=== PATIENT | male | born 1945 | race Caucasian/White ===

== ENCOUNTER 2017-09-24 19:52 | Observation (INO) | payer MEDICARE ==
[2017-09-24] MEDS ORDERED: NS 0.9% 1000 ML* 1,000 ML IV ONE (20:25)
[2017-09-24] MEDS ORDERED: Morphine INJ* 4 MG/ML 1 ML CARPUJECT IV ONE (20:25)
[2017-09-24] MEDS ORDERED: Ondansetron INJ* 2 MG/ML VIAL IV ONE (20:25)
[2017-09-24 20:50] LABS: Hematocrit 50 % (42-52); Hemoglobin 17.1 g/dl (14.0-18.0); Mean Corpuscular HGB Conc 35 g/dl (31-36); Mean Corpuscular Hemoglobin 32 pg (27-31); Mean Corpuscular Volume 93 fL (80-94); Mean Platelet Volume 7 um3 (7.4-10.4); Red Blood Count 5.32 10^6/ul (4.0-5.4); Red Cell Distribution Width 13 % (10.5-15); White Blood Count 14.5 10^3/ul (3.5-10.8)
[2017-09-24 21:04] LABS: BUN/Creatinine Ratio 25.2 (8-20); Calcium 10.2 mg/dL (8.6-10.3); EGFR African American 74.6 (>60); Globulin 3.2 g/dL (2-4); Potassium 4.3 mmol/L (3.5-5.0); Total Bilirubin 0.8 mg/dL (0.2-1.0); Total Protein 8.2 g/dL (6.4-8.9)
--- NOTE | 2017-09-24 21:43 | ED ---
Rocio Saucedo Abhishek, scribed for Jonah Hong on 09/24/17 at 2108 . Abdominal Pain/Male - HPI Summary HPI Summary: This patient is a 71 year old M presenting to [facility] accompanied by with a chief complaint of abd pain since today. The patient rates the pain 8/10 in severity. Symptoms aggravated by nothing. Symptoms alleviated by nothing. Patient reports nausea, vomiting, flatulence, and diarrhea. Patient denies CP. - History of Current Complaint Chief Complaint: EDAbdPain Stated Complaint: ABD PAIN Time Seen by Provider: 09/24/17 20:12 Hx Obtained From: Patient Onset/Duration: Sudden Onset - today Timing: Constant Severity Initially: Severe Severity Currently: Severe Pain Intensity: 8 Pain Scale Used: 0-10 Numeric Location: Other - Both lower quadrants Aggravating Factor(s): Nothing Alleviating Factor(s): Nothing Associated Signs And Symptoms: Positive: Nausea, Vomiting, Diarrhea, Other - flatulence. Negative: Chest Pain - Allergies/Home Medications Allergies/Adverse Reactions: Allergies Allergy/AdvReac Type Severity Reaction Status Date / Time tape Allergy Hives Uncoded 09/24/17 19:57 PMH/Surg Hx/FS Hx/Imm Hx Cardiovascular History: Denies: Hx Hypertension Respiratory History: Denies: Other Respiratory Problems/Disorders GI History: Reports: Other GI Disorders - Pancreatitis Sensory History: Denies: Hx Deafness Opthamlomology History: Denies: Hx Legally Blind Infectious Disease History: No Infectious Disease History: Denies: Traveled Outside the [place] in Last 30 Days - Family History Known Family History: Negative: Cardiac Disease, Diabetes - Social History Alcohol Use: Occasionally Substance Use Type: Reports: None Smoking Status (MU): Former Smoker Review of Systems Constitutional: Negative Eyes: Negative ENT: Negative Negative: Chest Pain Respiratory: Negative Positive: Abdominal Pain, Vomiting, Diarrhea, Nausea, Other - flatulence Genitourinary: Negative Musculoskeletal: Negative Skin: Negative Neurological: Negative Psychological: Normal All Other Systems Reviewed And Are Negative: Yes Physical Exam - Summary Physical Exam Summary: Appearance: Well appearing, no pain distress Skin: Scars on the abd Head/face: normal Eyes: EOMI, LESLIE ENT: normal Neck: supple, non-tender Respiratory: CTA, breath sounds present Cardiovascular: RRR, pulses symmetrical Abdomen: Tenderness in the right and left lower quadrants Bowel: present Musculoskeletal: normal, strength/ROM intact Neuro: normal, sensory motor intact, A&Ox3 Triage Information Reviewed: Yes Vital Signs On Initial Exam: Initial Vitals Temp Pulse Resp BP Pulse Ox 97.3 F 86 22 157/80 99 09/24/17 19:54 09/24/17 19:54 09/24/17 19:54 09/24/17 19:54 09/24/17 19:54 Vital Signs Reviewed: Yes - [place] Coma Scale Coma Scale Total: 15 Diagnostics - Vital Signs Vital Signs Temp Pulse Resp BP Pulse Ox 09/24/17 20:43 18 09/24/17 19:54 97.3 F 86 22 157/80 99 - Laboratory Lab Results: Lab Results 09/24/17 09/24/17 Range/Units 20:35 20:35 WBC 14.5 H (3.5-10.8) 10^3/ul RBC 5.32 (4.0-5.4) 10^6/ul Hgb 17.1 (14.0-18.0) g/dl Hct 50 (42-52) % MCV 93 (80-94) fL MCH 32 H (27-31) pg MCHC 35 (31-36) g/dl RDW 13 (10.5-15) % Plt Count 181 (150-450) 10^3/ul MPV 7 L (7.4-10.4) um3 Neut % (Auto) 87.1 H (38-83) % Lymph % (Auto) 7.0 L (25-47) % [place] % (Auto) 4.8 (1-9) % Eos % (Auto) 0.6 (0-6) % Baso % (Auto) 0.5 (0-2) % Absolute Neuts (auto) 12.6 H (1.5-7.7) 10^3/ul Absolute Lymphs (auto) 1.0 (1.0-4.8) 10^3/ul Absolute Monos (auto) 0.7 (0-0.8) 10^3/ul Absolute Eos (auto) 0.1 (0-0.6) 10^3/ul Absolute Basos (auto) 0.1 (0-0.2) 10^3/ul Absolute Nucleated RBC 0 10^3/ul Nucleated RBC % 0 INR (Anticoag Therapy) 0.91 (0.89-1.11) APTT 29.2 (26.0-36.3) seconds Result Diagrams: 09/24/17 20:35 09/24/17 20:35 Lab Statement: Any lab studies that have been ordered have been reviewed, and results considered in the medical decision making process. Abdominal Pain Fem Course/Dx - Course Course Of Treatment: This patient is a 71 year old M presenting to [facility] accompanied by with a chief complaint of abd pain since today. Patient reports nausea, vomiting, flatulence, and diarrhea. Patient denies CP. Patient is signed out to Dr. Briceno, pending disposition, awaiting CT A/P. Dx is abd pain. The patient is agreeable with this plan. The patient is agreeable with this plan. - Diagnoses Differential Diagnosis/HQI/PQRI: Appendicitis, Bowel Obstruction, Diverticulitis , Renal Colic, Urinary Tract Infection Provider Diagnoses: Abdominal pain Discharge - Discharge Plan Condition: Stable Disposition: OTHER Discharge Disposition Comment: Patient is signed out to Dr. Briceno, pending disposition, awaiting CT A/P Referrals: Non Staff,Doctor [Primary Care Provider] - The documentation as recorded by the Rocio mckeon Abhishek accurately reflects the service I personally performed and the decisions made by , Jonah Hong.
[2017-09-24] MEDS ORDERED: Iodixanol* (CONTRAST) 320 MG/ML 100 ML SDV IV ONE (22:01)
[2017-09-25] MEDS ORDERED: Albuterol 2.5 MG/3 ML NEB.SOL* (0.083%) INH PRN (01:16)
[2017-09-25] MEDS ORDERED: Acetaminophen SUPP* 650 MG SUPP PR PRN (01:16)
[2017-09-25] MEDS ORDERED: LORazepam INJ* 2 MG/ML 1 ML VIAL IV PRN (01:16)
[2017-09-25] MEDS ORDERED: Morphine INJ* 2 MG/ML 1 ML SYRINGE (TWO MG - NEW SYRINGE VERSION) IV PRN (01:17)
[2017-09-25] MEDS ORDERED: Ondansetron INJ* 2 MG/ML VIAL IV PRN (01:17)
[2017-09-25] MEDS ORDERED: ZOSYN 3.375 GM x ONE DOSE over 30 miuntes IVPB ×2 (02:00)
[2017-09-25] MEDS: NS 0.9% 1000 ML* 1,000 ML IV SCH ×4 (02:23→15:13)
[2017-09-25 02:29] LABS: Hematocrit 42 % (42-52); Hemoglobin 14.6 g/dl (14.0-18.0); Mean Corpuscular HGB Conc 35 g/dl (31-36); Mean Corpuscular Hemoglobin 32 pg (27-31); Mean Corpuscular Volume 93 fL (80-94); Mean Platelet Volume 7 um3 (7.4-10.4); Red Blood Count 4.54 10^6/ul (4.0-5.4); Red Cell Distribution Width 14 % (10.5-15); White Blood Count 10.6 10^3/ul (3.5-10.8)
[2017-09-25 02:43] LABS: EGFR African American 104.3 (>60); EGFR Non-African American 81.1 (>60)
--- NOTE | 2017-09-25 02:56 | HP ---
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 He had one episode of "twisted bowels" ~10years ago. Yesterday AM when bending over to put on his shoes he developed a cramping abdominal pain which waxed and waned throughout the day. He & his came to [place] to have lunch with their son and then went to [place] where his son had recently bought a home. On the way he experienced severe worsening of his abdominal cramping associated with nausea, chills, and sweats, but no emesis, fever, chest pain, SOB, palpitations, or other issues. The pain became so severe , they consulted their GPS for the nearest hospital and came to [facility]. Evaluation is notable for WBCs of 14k and a CT abdomen revealing a SBO. Morphine has greatly alleviated the pain, whereas moving and palpation made it worse. He had a single small volume bowel movement today and recall passing flatus x3, but not since ~noon. PMedHx severe gallstone pancreatitis as above numerous procedures ~21years ago for multiple/recurrent abdominal abscesses DVT s/p IVC filter HTN HLD Medications Nursing to reconcile Allergies tape Allergy (Uncoded 09/24/17 19:57) Hives PSurgHx open cholecystectomy >10 abdominal surgeries for recurrent abscesses as above SocHx: no tobacco, alcohol, or recreational drugs; lives with his ; retired secondary school teacher librarian; full code status FamHx: Father: in his 80s 2nd "unknown skin problem" w/ CAD; Mother: in her 80s 2nd complications of Alzheimer's; Sister: healthy ROS: as above, otherwise reviewed and all were negative vitals: Vital Signs Temp 36.7 C 09/25/17 01:35 Pulse 62 09/25/17 01:35 Resp 16 09/25/17 01:35 BP 143/60 09/25/17 01:35 Pulse Ox 98 09/25/17 01:35 Intake & Output 09/24/17 09/24/17 09/25/17 11:59 23:59 11:59 Intake Total 1000 Balance 1000 Weight 86.183 kg Intake: IV Fluids 1000 Constitutional: NAD, normally developed, overweight elderly white male HEENM: atraumatic; sclera/conjunctiva: anicteric/clear; hearing: clinically intact; oropharynx: clear, mucosa moist Neck: soft tissue: non-tender; thyroid: normal Pulmonary: clear to auscultation bilaterally, good aeration, no accessory muscle use CV: RR/RR, normal S1S2, no carotid bruit, no jugular venous distention, 2+ B DP/ PT, no edema Abdominal: soft, mildly-distended, non-tender, no rebound/guarding/rigidity, normoactive bowel sounds, no hepatosplenomegaly or masses, no costovertebral angle tenderness Musculoskeletal: general: grossly intact; gait: stable Integumental: multiple healed abdominal incisions w/o erytherma/warmth/ induration/tenderness Psychiatric orientation: AA&O to PPS affect: calm mood: cooperative eye contact: good content: reliable responses: timely insight: good Testing: Lab Results 09/24/17 09/24/17 09/24/17 Range/Units 20:35 20:35 20:35 WBC 14.5 H (3.5-10.8) 10^3/ul RBC 5.32 (4.0-5.4) 10^6/ul Hgb 17.1 (14.0-18.0) g/dl Hct 50 (42-52) % MCV 93 (80-94) fL MCH 32 H (27-31) pg MCHC 35 (31-36) g/dl RDW 13 (10.5-15) % Plt Count 181 (150-450) 10^3/ul MPV 7 L (7.4-10.4) um3 Neut % (Auto) 87.1 H (38-83) % Lymph % (Auto) 7.0 L (25-47) % [place] % (Auto) 4.8 (1-9) % Eos % (Auto) 0.6 (0-6) % Baso % (Auto) 0.5 (0-2) % Absolute Neuts (auto) 12.6 H (1.5-7.7) 10^3/ul Absolute Lymphs (auto) 1.0 (1.0-4.8) 10^3/ul Absolute Monos (auto) 0.7 (0-0.8) 10^3/ul Absolute Eos (auto) 0.1 (0-0.6) 10^3/ul Absolute Basos (auto) 0.1 (0-0.2) 10^3/ul Absolute Nucleated RBC 0 10^3/ul Nucleated RBC % 0 INR (Anticoag Therapy) 0.91 (0.89-1.11) APTT 29.2 (26.0-36.3) seconds Sodium 135 (133-145) mmol/L Potassium 4.3 (3.5-5.0) mmol/L Chloride 99 L (101-111) mmol/L Carbon Dioxide 25 (22-32) mmol/L Anion Gap 11 (2-11) mmol/L BUN 31 H (6-24) mg/dL Creatinine 1.23 H (0.67-1.17) mg/dL Est GFR ( Amer) 74.6 (>60) Est GFR (Non-Af Amer) 58.0 (>60) BUN/Creatinine Ratio 25.2 H (8-20) Glucose 119 H (70-100) mg/dL Lactic Acid (0.5-2.0) mmol/L Calcium 10.2 (8.6-10.3) mg/dL Total Bilirubin 0.80 (0.2-1.0) mg/dL AST 27 (13-39) U/L ALT 41 (7-52) U/L Alkaline Phosphatase 48 (34-104) U/L Troponin I 0.00 (<0.04) ng/mL Total Protein 8.2 (6.4-8.9) g/dL Albumin 5.0 (3.2-5.2) g/dL Globulin 3.2 (2-4) g/dL Albumin/Globulin Ratio 1.6 (1-3) Lipase 19 (11.0-82.0) U/L 09/24/17 09/25/17 09/25/17 Range/Units 20:35 02:18 02:18 WBC (3.5-10.8) 10^3/ul RBC (4.0-5.4) 10^6/ul Hgb (14.0-18.0) g/dl Hct (42-52) % MCV (80-94) fL MCH (27-31) pg MCHC (31-36) g/dl RDW (10.5-15) % Plt Count (150-450) 10^3/ul MPV (7.4-10.4) um3 Neut % (Auto) (38-83) % Lymph % (Auto) (25-47) % [place] % (Auto) (1-9) % Eos % (Auto) (0-6) % Baso % (Auto) (0-2) % Absolute Neuts (auto) (1.5-7.7) 10^3/ul Absolute Lymphs (auto) (1.0-4.8) 10^3/ul Absolute Monos (auto) (0-0.8) 10^3/ul Absolute Eos (auto) (0-0.6) 10^3/ul Absolute Basos (auto) (0-0.2) 10^3/ul Absolute Nucleated RBC 10^3/ul Nucleated RBC % INR (Anticoag Therapy) 0.92 (0.89-1.11) APTT 26.5 (26.0-36.3) seconds Sodium (133-145) mmol/L Potassium (3.5-5.0) mmol/L Chloride (101-111) mmol/L Carbon Dioxide (22-32) mmol/L Anion Gap (2-11) mmol/L BUN (6-24) mg/dL Creatinine (0.67-1.17) mg/dL Est GFR ( Amer) (>60) Est GFR (Non-Af Amer) (>60) BUN/Creatinine Ratio (8-20) Glucose (70-100) mg/dL Lactic Acid 2.1 H* 1.5 (0.5-2.0) mmol/L Calcium (8.6-10.3) mg/dL Total Bilirubin (0.2-1.0) mg/dL AST (13-39) U/L ALT (7-52) U/L Alkaline Phosphatase (34-104) U/L Troponin I (<0.04) ng/mL Total Protein (6.4-8.9) g/dL Albumin (3.2-5.2) g/dL Globulin (2-4) g/dL Albumin/Globulin Ratio (1-3) Lipase (11.0-82.0) U/L 11/13/17 11/13/17 Range/Units 02:18 02:18 WBC 10.6 (3.5-10.8) 10^3/ul RBC 4.54 (4.0-5.4) 10^6/ul Hgb 14.6 (14.0-18.0) g/dl Hct 42 (42-52) % MCV 93 (80-94) fL MCH 32 H (27-31) pg MCHC 35 (31-36) g/dl RDW 14 (10.5-15) % Plt Count 154 (150-450) 10^3/ul MPV 7 L (7.4-10.4) um3 Neut % (Auto) 77.7 (38-83) % Lymph % (Auto) 12.9 L (25-47) % [place] % (Auto) 7.6 (1-9) % Eos % (Auto) 1.2 (0-6) % Baso % (Auto) 0.6 (0-2) % Absolute Neuts (auto) 8.2 H (1.5-7.7) 10^3/ul Absolute Lymphs (auto) 1.4 (1.0-4.8) 10^3/ul Absolute Monos (auto) 0.8 (0-0.8) 10^3/ul Absolute Eos (auto) 0.1 (0-0.6) 10^3/ul Absolute Basos (auto) 0.1 (0-0.2) 10^3/ul Absolute Nucleated RBC 0 10^3/ul Nucleated RBC % 0 INR (Anticoag Therapy) (0.89-1.11) APTT (26.0-36.3) seconds Sodium (133-145) mmol/L Potassium (3.5-5.0) mmol/L Chloride (101-111) mmol/L Carbon Dioxide (22-32) mmol/L Anion Gap (2-11) mmol/L BUN 29 H (6-24) mg/dL Creatinine 0.92 (0.67-1.17) mg/dL Est GFR ( Amer) 104.3 (>60) Est GFR (Non-Af Amer) 81.1 (>60) BUN/Creatinine Ratio (8-20) Glucose (70-100) mg/dL Lactic Acid (0.5-2.0) mmol/L Calcium (8.6-10.3) mg/dL Total Bilirubin (0.2-1.0) mg/dL AST (13-39) U/L ALT (7-52) U/L Alkaline Phosphatase (34-104) U/L Troponin I (<0.04) ng/mL Total Protein (6.4-8.9) g/dL Albumin (3.2-5.2) g/dL Globulin (2-4) g/dL Albumin/Globulin Ratio (1-3) Lipase (11.0-82.0) U/L CT abdomen/pelvis, personally reviewed: IMPRESSION: Small bowel obstruction associated with lateral abdominal wall hernia Impression: 71M HX severe gallstone pancreatitis precipitating >10 surgeries to recover presents with SBO DIAGNOSIS & PLAN Primary SBO : NG to low intermittent suction for decompression : NPO : pain control : consider surgical consult in AM pending overnight course : supportive care Secondary HX DVT : s/p IVC filter : SCDs & heparin SQ HTN : review medications once reconciled HLD : review medications once reconciled Admission Rational: inpatient for SBO not anticipated to adequately resolve w/i 48h to allow for discharge DVTp: heparin SQ & SCDs Code Status: full HCP:
--- NOTE | 2017-09-25 03:58 | ED ---
Kathleen Saucedo Edward, scribed for Marta Briceno MD on 09/24/17 at 2322 . Progress - Progress Note Progress Note: Pt signed out by Dr. Hong pending ABD/PEL CT. - Results/Orders Results/Orders: ABD/PEL CT - Small bowel obstruction associated with lateral abdominal wall hernia. Re-Evaluation - Re-Evaluation 1 Re-Evaluation Time: 23:53 Comment: Discuss CT results Course/Dx - Course Course Of Treatment: This patient is a 71 year old M [facility] accompanied by with a chief complaint of abd pain since today. Patient reports nausea, vomiting, flatulence, and diarrhea. Patient denies CP. Patient is signed out to Dr. Briceno, pending disposition, awaiting CT A/P. Dx is abd pain. The patient is agreeable with this plan. ABD/PEL CT SHOWS small bowel obstruction associated with lateral abdominal wall hernia. Pt will be admitted to [facility] by Dr. Farmer. - Diagnoses Provider Diagnoses: Abdominal pain, SBO (small bowel obstruction) - Provider Notifications Discussed Care Of Patient With: Héctor Farmer Time Discussed With Above Provider: 00:20 Instructed by Provider To: Admit As Inpatient The documentation as recorded by the Kathleen mckeon Edward accurately reflects the service I personally performed and the decisions made by Kaity hernandez Norma, MD.
[2017-09-25 04:17] LABS: Urine Bilirubin Negative (Negative); Urine Glucose Negative (Negative); Urine Nitrite Negative (Negative)
[2017-09-25 05:41] LABS: Hematocrit 42 % (42-52); Hemoglobin 14.1 g/dl (14.0-18.0); Mean Corpuscular HGB Conc 34 g/dl (31-36); Mean Corpuscular Hemoglobin 32 pg (27-31); Mean Corpuscular Volume 93 fL (80-94); Mean Platelet Volume 7 um3 (7.4-10.4); Red Blood Count 4.44 10^6/ul (4.0-5.4); Red Cell Distribution Width 14 % (10.5-15); White Blood Count 9.1 10^3/ul (3.5-10.8)
[2017-09-25 05:55] LABS: BUN/Creatinine Ratio 27.8 (8-20); Calcium 7.8 mg/dL (8.6-10.3); EGFR Non-African American 83.2 (>60); Potassium 4.3 mmol/L (3.5-5.0)
--- NOTE | 2017-09-25 07:54 | RAD ---
INDICATION: Left lower quadrant pain COMPARISON: None TECHNIQUE: Axial source images were obtained from the hemidiaphragms to the symphysis pubis following administration of oral and intravenous contrast. 97 mL Visipaque 320 was utilized. Coronal and sagittal reconstructed images were acquired. Lung bases: There are mild emphysematous changes in lung bases. Liver: The liver is normal in size. There are no masses. There is no ductal dilatation. Gallbladder: Cholecystectomy. Spleen: The spleen is normal in size. There are no masses. Pancreas: There is mild pancreatic atrophy. Adrenal glands: There is no evidence of adrenal mass. Kidneys: The kidneys are normal in size and position. There are prompt nephrograms and there is prompt excretion bilaterally. There are no renal parenchymal masses. There is no evidence of nephrolithiasis. Adenopathy: There is no evidence of adenopathy by size criteria. Fluid collections: There are no free or localized fluid collections. Vessels:There are no significant atherosclerotic changes involving the aorta. There is no focal aneurysm. The iliac vessels are normal in caliber. The IVC appears normal. GI tract: There are no acute CT bowel findings. There is no obstruction. The stomach and small bowel appear normal. The lower GI tract is normal. The cecum, ileocecal valve, and terminal ileum appear normal. The appendix is visualized and appear normal. Pelvic organs: The prostate is mildly enlarged with a nodular configuration impressing upon the floor the bladder Bladder: Extrinsic mass effect from prostate, otherwise negative. Abdominal and pelvic soft tissues: There is a moderate-sized right lateral abdominal wall hernia containing multiple loops of small bowel. This appears to be producing a partial obstruction. The dilated loops of small bowel measuring up to 3.8 cm in transverse dimension proximal to this. There are no findings of pneumatosis. There is no free intraperitoneal air. The remainder the small bowel is normal in caliber but is also fluid-filled. The colon is fluid-filled. There are scattered diverticula of the sigmoid colon. There is no CT evidence of acute diverticulitis. Osseous structures: There are no acute osseous findings. Other: None IMPRESSION: RIGHT LATERAL WALL HERNIA PRODUCING PARTIAL SMALL BOWEL OBSTRUCTION.
--- NOTE | 2017-09-25 08:37 | PN ---
Subjective Date of Service: 09/25/17 Interval History: Patient seen and examined at bedside. Patient denies pain at this time. Denies nausea as well. Reports flatus. NGT output 250 since insertion. Family History: Unchanged from Admission Social History: Unchanged from Admission Past Medical History: Unchanged from Admission Objective Active Medications: Acetaminophen (Tylenol Supp*) 650 mg AR Q6H PRN Albuterol (Ventolin 2.5 Mg/3 Ml Neb.Jen*) 2.5 mg INH Q2H PRN Famotidine (Pepcid Iv*) 20 mg IV BID VERNON Heparin Sodium (Porcine) (Heparin Vial(*)) 5,000 units SUBCUT Q8HR VERNON Sodium Chloride (Ns 0.9% 1000 Ml*) 1,000 mls @ 0 mls/hr IV WIDE OPEN VERNON Sodium Chloride (Ns 0.9% 1000 Ml*) 1,000 mls @ 100 mls/hr IV PER RATE VERNON Piperacillin Sod/Tazobactam (Sod 3.375 gm/ Sodium Chloride) 100 mls @ 25 mls/ hr IVPB Q8H VERNON Lorazepam (Ativan Inj*) 0.5 mg IV BEDTIME PRN Morphine Sulfate (Morphine Inj (Syringe)*) 2 mg IV Q4H PRN Ondansetron HCl (Zofran Inj*) 4 mg IV Q6H PRN Vital Signs Temp Pulse Resp BP Pulse Ox 97.6 F 62 18 138/59 96 09/25/17 03:51 09/25/17 03:51 09/25/17 08:00 09/25/17 03:51 09/25/17 04:31 Oxygen Devices in Use Now: None Appearance: sitting up in bed, NAD Eyes: No Scleral Icterus, PERRLA Ears/Nose/Mouth/Throat: NL Teeth, Lips, Gums Neck: NL Appearance and Movements; NL JVP Respiratory: Symmetrical Chest Expansion and Respiratory Effort, Clear to Auscultation Cardiovascular: NL Sounds; No Murmurs; No JVD, RRR Abdominal: - - slight tenderness to deep palpation on R and L lateral rodriguez; +BS , non-distended. Extremities: No Edema Neurological: Alert and Oriented x 3 Lines/Tubes/Other Access: Clean, Dry and Intact Naso-enteral Tube Nutrition: Taking PO's Result Diagrams: 09/25/17 05:20 09/25/17 05:20 Additional Lab and Data: . Assess/Plan/Problems-Billing Patient is a 71 y/o M w/ hx of multiple abdominal surgeries secondary to gallstone pancreatitis who presented to the ER w/ the c/o of sudden onset of abdominal pain with nausea found to have a small bowel obstruction. - Patient Problems (1) Small bowel obstruction Comment: Pain improved. Will clamp NGT for 2 hrs and replace to suction. If < 250 mL and no worsening pain or nausea, will remove and advance to clears. Repeat KUB for AM. Surgery to see. Continue IVF while NPO. Leukocytosis improved. (2) HTN (hypertension) Comment: Hold Lisinopril-HCTZ for now. BP controlled. (3) DVT prophylaxis Comment: SQ Heparin. (4) Full code status Status and Disposition: Inpatient for SBO. Plan to discharge home when stable.
[2017-09-25] MEDS: Famotidine IV* 10 MG/ML 2 ML (20 mg) IV SCH ×2 (09:10→20:57)
--- NOTE | 2017-09-25 09:59 | CONSULT ---
Consult Consult: Surgical consult dictated. Impression/Plan: Partial SBO, recurrent, last episdoe 10 years ago. 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 Known right sided ventral hernia, reducible, and non-tender. Exam with mildly dilated abdomen, positive bowel sounds in all quadrants, no tenderness. NG output approx. 150 cc since admission Plan to clamp NG tube, resume suction after 2 hrs, then d/c NG if output<200 cc. No signs of acute abdomen No surgical indications at this time. Will follow during this admission
--- NOTE | 2017-09-25 19:51 | CONS ---
CC: Héctor Farmer MD * CONSULTATION REPORT: DATE OF CONSULT: 09/25/17 PATIENT OF: Héctor Farmer MD REFERRED TO: Reji Avalos MD REASON FOR CONSULT: Abdominal pain and small bowel obstruction. HISTORY OF PRESENT ILLNESS: Mr. Hurt is a pleasant 71-year-old gentleman, who presented to the emergency room with complaints of acute onset of severe abdominal pain. The patient notes he bent over to get something closer to his shoes the day before, when he experienced an acute onset of crampy abdominal pain, which waxed and waned throughout the day. His pain has gotten worse on the next day while he was driving to [place] to have lunch with his and son. He resides in [place] and he went to [place] to visit his son and on his way back to the area, he noticed increasing pain in his abdomen for which he went directly to the emergency room at [facility] for further evaluation. He described it as severe sharp pain localized in the mid and lower abdomen, associated with nausea, chills, and sweats, but denies any vomiting, fever, chest pain. He had similar complaints about 10 years ago, which was described as "twisted bowels" for which he was hospitalized and had an NG decompression; however, no surgical intervention was needed back then. 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 The patient described really complicated postoperative course with multiple intraabdominal abscesses drained and also noted that the patient was in induced coma for a period of 5 months, until he eventually recovered from the episode. Fortunately for him, he only had 1 episode of small bowel obstruction 10 years ago that appeared to be resolved with no surgical intervention and had no abdominal pain until yesterday. During his ED visit yesterday, the patient was noted to have leukocytosis with white count of 14,000. He had a CT scan of the abdomen and pelvis that revealed partial small bowel obstruction as well as a large right-sided ventral hernia containing bowel. Given his ongoing symptoms and the findings of the CT scan, the patient was admitted under the medical services for small bowel obstruction. He did relatively better since admission and this morning, he is pain free, passing a little bit of flatus, denies any nausea or vomiting. He had an NG since his admission that produced only 150 cc of total output. We were asked to see the patient for further evaluation of small bowel obstruction. PAST MEDICAL HISTORY: As mentioned above, significant for a gallstone pancreatitis for which the patient had a cholecystectomy that was complicated with necrotizing pancreatitis as well as multiple intraabdominal surgeries and abscesses during a course of 5-month hospitalization. 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 He also has history of hypertension and hyperlipidemia. PAST SURGICAL HISTORY: As mentioned above, significant for cholecystectomy 21 years ago that was complicated with multiple biliary obstructions, gallstones pancreatitis, and necrotizing pancreatitis for which he had a total of 10 intraabdominal surgeries in a period of 5-1/2 months with complicated postoperative course and intraabdominal abscess formation. He also has a Thomas IVC filter placed. CURRENT MEDICATIONS: His medications at home include: 1. Albuterol nebulizer 2.5/3 mL inhaler q.2 hours p.r.n. for shortness of breath. 2. Lorazepam 0.5 mg q.8 hours p.r.n. for anxiety. ALLERGIES: He is allergic to TAPE, which caused localized reaction. FAMILY HISTORY: Noncontributory. SOCIAL HISTORY: The patient resides in [place]. He is retired. He denies smoking or alcohol intake. REVIEW OF SYSTEMS: See HPI. Otherwise negative. He denies any headache, dizziness, blurred vision, or double vision. No sore throat, shortness of breath, cough, or wheezing. He denies chest pain, palpitation, or ankle swelling. No back pain, flank pain, dysuria, hematuria, or urinary frequency. No fever, chills, night sweats, or recent weight loss. PHYSICAL EXAM: General: He is a pleasant, healthy appearing, upper middle- aged gentleman, in no acute distress or discomfort at the time of consultation. Vitals: His vitals this morning revealed a temperature of 99.4, pulse of 62, blood pressure of 117/55, respirations of 18, and O2 sat of 97% on room air. HEENT: Sclerae anicteric. PERRLA. EOMs intact. Oropharynx is pink and moist with no exudate. Neck: Supple, trachea midline. No cervical adenopathy, thyromegaly, or JVD. Lungs: Clear to auscultation bilaterally. Heart: Regular rate and rhythm. Normal S1 and S2 without rubs, murmurs, or gallops. Back with normal curvature, no CVA tenderness. Abdomen: Soft and nontender. There is mild distention noted, but no focal tenderness throughout the abdomen. There are multiple old scars from prior laparotomy, one of them extends transversely from right to left flank. There is moderate right-sided ventral hernia noted that was easily reducible without tenderness noted. No organosplenomegaly. There is no guarding, rigidity, or rebound tenderness. Extremities: Without cyanosis, clubbing, or edema. Neurologic: Grossly intact. Rectal exam deferred at this time. DIAGNOSTIC STUDIES/LAB DATA: The patient had CBC upon admission that revealed leukocytosis with white count of 14,500 that had dropped to normal limits with value of 9000 this morning. Remainder of CBC was within normal limits. Chemistry revealed normal limits with lactic acid elevated yesterday with value of 2.1 that was repeated earlier this morning with a normal limit with value of 1.5. Accessory diagnostic data: The patient had a CT scan of the abdomen and pelvis last night during his ED visit that revealed a right lateral wall hernia with partial small bowel obstruction. IMPRESSION: A 71-year-old gentleman with multiple complicated past surgical history, who presented with acute onset of abdominal pain and distention with CT scan finding consistent with partial small bowel obstruction. PLAN: The patient was admitted under surgical services. He was kept NPO and NG tube was placed for decompression. He appears to be clinically improving at this time. His NG output has been totalled 150 cc since his admission. His exam was essentially unremarkable and he has chronic right-sided ventral hernia that has not been bothering him since onset. At this point, I do not see any surgical indication. I recommended clamping the NG tube for a period of 2 hours and to resume suction after that. If that output by then is less than 200 , we will discontinue the NG tube and we will start him on a trial of sips of clear liquids as well as ambulating down the mcdowell. I will also get abdominal x- rays tomorrow for a followup. The case will be discussed with Dr. Avalos regarding any further recommendation. Thank you for this consultation. NIRMAL HAMLIN [id number]/[facility] #: [id number] [facility] HEART CENTERAmilcar
[2017-09-26] MEDS: NS 0.9% 1000 ML* 1,000 ML IV SCH (01:17)
[2017-09-26] MEDS: Heparin VIAL(*) 5000 UNITS/ML VIAL (FIVE THOUSAND) SUBCUT SCH ×2 (05:32→13:38)
[2017-09-26 05:39] LABS: Hematocrit 38 % (42-52); Hemoglobin 12.8 g/dl (14.0-18.0); Mean Corpuscular HGB Conc 34 g/dl (31-36); Mean Corpuscular Hemoglobin 32 pg (27-31); Mean Corpuscular Volume 94 fL (80-94); Mean Platelet Volume 7 um3 (7.4-10.4); Red Blood Count 4.02 10^6/ul (4.0-5.4); Red Cell Distribution Width 13 % (10.5-15); White Blood Count 5.5 10^3/ul (3.5-10.8)
[2017-09-26 05:55] LABS: BUN/Creatinine Ratio 17.4 (8-20); Calcium 7.7 mg/dL (8.6-10.3); EGFR African American 104.3 (>60); EGFR Non-African American 81.1 (>60); Potassium 3.5 mmol/L (3.5-5.0)
[2017-09-26] MEDS ORDERED: NS 0.9% 1000 ML* 1,000 ML IV SCH (07:30)
[2017-09-26] MEDS: Famotidine IV* 10 MG/ML 2 ML (20 mg) IV SCH (07:59)
--- NOTE | 2017-09-26 08:06 | RAD ---
INDICATION: Follow-up small bowel obstruction COMPARISON: CT abdomen pelvis dated September 24, 2017 TECHNIQUE: Supine and upright views of the abdomen were obtained. FINDINGS: There are dilated loops of small bowel measuring up to 4.4 cm in diameter at the right of midline upper abdomen that correspond to the dilated loop seen on the previous CT examination. Gas and stool is seen overlying the distal colon and rectum including oral contrast from the previous day's CT. Incidentally noted is a Thomas filter. IMPRESSION: Dilated loops of small bowel measuring up to 4.4 cm in diameter, and increased when compared to the previous CT examination.
--- NOTE | 2017-09-26 10:02 | PN ---
Subjective Date of Service: 09/26/17 Interval History: Patient seen and examined at bedside. Patient stated he had formed BM yesterday and liquid BM today. He denies pain at this time. Family History: Unchanged from Admission Social History: Unchanged from Admission Past Medical History: Unchanged from Admission Objective Active Medications: Acetaminophen (Tylenol Supp*) 650 mg NE Q6H PRN Famotidine (Pepcid Iv*) 20 mg IV BID VERNON Heparin Sodium (Porcine) (Heparin Vial(*)) 5,000 units SUBCUT Q8HR VERNON Piperacillin Sod/Tazobactam (Sod 3.375 gm/ Sodium Chloride) 100 mls @ 25 mls/ hr IVPB Q8H VERNON Sodium Chloride (Ns 0.9% 1000 Ml*) 1,000 mls @ 50 mls/hr IV PER RATE VERNON Lorazepam (Ativan Inj*) 0.5 mg IV BEDTIME PRN Morphine Sulfate (Morphine Inj (Syringe)*) 2 mg IV Q4H PRN Ondansetron HCl (Zofran Inj*) 4 mg IV Q6H PRN Vital Signs Temp Pulse Resp BP Pulse Ox 98.2 F 64 17 148/65 98 09/26/17 08:11 09/26/17 08:11 09/26/17 08:11 09/26/17 08:11 09/26/17 08:11 Oxygen Devices in Use Now: None Appearance: sitting up in bed, NAD Eyes: No Scleral Icterus, PERRLA Ears/Nose/Mouth/Throat: NL Teeth, Lips, Gums Neck: NL Appearance and Movements; NL JVP Respiratory: Symmetrical Chest Expansion and Respiratory Effort, Clear to Auscultation Cardiovascular: NL Sounds; No Murmurs; No JVD, RRR Abdominal: NL Sounds; No Tenderness; No Distention Extremities: No Edema Skin: No Rash or Ulcers Neurological: Alert and Oriented x 3 Lines/Tubes/Other Access: Clean, Dry and Intact Peripheral IV Result Diagrams: 09/26/17 05:17 09/26/17 05:17 Additional Lab and Data: . Assess/Plan/Problems-Billing Patient is a 71 y/o M w/ hx of multiple abdominal surgeries secondary to gallstone pancreatitis who presented to the ER w/ the c/o of sudden onset of abdominal pain with nausea found to have a small bowel obstruction. - Patient Problems (1) Small bowel obstruction Comment: KUB shows persistent loops of dilated bowels but pt moving bowels and pain resolved. Will advance to full liquid diet. Appreciate surgical consult. (2) HTN (hypertension) Comment: Hold Lisinopril-HCTZ for now. BP controlled. (3) DVT prophylaxis Comment: SQ Heparin. (4) Full code status Status and Disposition: Inpatient for SBO. Possible discharge home later today.
[2017-09-26 11:45] VITALS: BP 140/52
--- NOTE | 2017-09-26 14:43 | PN ---
Progress Note - Progress Note Date of Service: 09/26/17 SOAP: Subjective: Patient seen and examined at bedside. Reports feeling much better. Has no pain, denies nausea or vomiting. Had multiple BMs since last night, pssing flatus. Tolerating full liquid, the soft diet. Would like to go home later today. Objective: Awake and alert, sitting on bed, eating lunch, comfortable and in NAD. VSS, afebrile Abdomen soft, NT, ND. Bowel sounds normoactive. Labs noted, leukocystosis resolved. AXR with persistent dilated small bowel loops despite clinical improvement. Assessment: A 71 y/o male with resolving partial SBO Plan: Agree with advancing diet D/C IVF Agree to discharge home today. Patient can follow up with PCP and general surgeon in [facility] in 1-2 weeks. Thank you for involving us in his care.
--- NOTE | 2017-09-27 06:17 | DS ---
CC: NIRMAL Morales * DISCHARGE SUMMARY: DATE OF ADMISSION: 09/25/17 DATE OF DISCHARGE: 09/26/17 PRIMARY CARE PROVIDER: Out of area. CONSULTATIONS WHILE IN THE HOSPITAL: NIRMAL Morales from Surgery. ATTENDING PHYSICIAN: Ellyn Mcclelland MD* (Dictated by Ladonna Mejias NP) PRIMARY DIAGNOSIS: Small bowel obstruction. SECONDARY DIAGNOSES: 1. Hypertension. 2. Hyperlipidemia. 3. History of deep venous thrombosis. STUDIES WHILE IN THE HOSPITAL: 1. CT scan of the abdomen and pelvis: Right lateral wall hernia producing partial small bowel obstruction. 2. Abdomen x-ray: Dilated loops of small bowel measuring up to 4.4 cm in diameter and increased when compared to previous CT examination. MEDICATIONS: At the time of discharge are unchanged from admission, which include: 1. Fish oil 1000 mg oral daily. 2. Lisinopril/hydrochlorothiazide 20/12.5 mg oral daily. 3. Pravastatin 40 mg oral daily. HISTORY OF PRESENT ILLNESS AND HOSPITAL COURSE: Mr. Hurt is a 71-year-old male with a history of severe gallstones pancreatitis resulting in over 10 surgeries secondary to abscess drainage and hospitalization for over 5 months. In addition, he had a history of small bowel obstruction approximately 10 years ago. The patient presented to the emergency room very late in the evening on with a complaint of cramping abdominal pain. The patient was visiting family in [facility]. Upon presentation, the patient had elevated white blood cells count and a CT of the abdomen which revealed a small bowel obstruction. The patient was admitted to the surgical floor. An NG tube was placed and with this the patient's pain improved. Consultation was obtained from Surgery. Please refer to their consultation for details. NG tube was clamped and able to be removed shortly on hospitalization day 1. The patient was started on sips of clears the following day, although repeat abdominal x-rays showed increasing dilatation of small bowel. The patient had two bowel movements and the pain had completely resolved. His diet was advanced to a full liquid and subsequently to a soft diet. He tolerated this diet without any worsening abdominal pain. At this point, he was stable to be discharged home with close followup by his primary care provider. Vitals were as follows: Temperature 98.5, heart rate 62, respiratory rate 16, blood pressure 114/52, oxygen saturation 98%. At this point, he was stable to be discharged home. DISCHARGE PLAN: The patient is discharged on a soft diet. The patient can have activity as tolerated. The patient is instructed to follow up with his primary care provider within the next 7 to 10 days. The patient is instructed to return to the hospital if he experiences any worsening abdominal pain, nausea , vomiting, and lack of bowel movements. I reviewed all these instructions with the patient and his , they are agreeable with his discharge today. This is a summarized report of a complex medical history and hospital stay. For more details, please see the entire medical record. TIME SPENT: Time for this discharge was 50 minutes, and 25 minutes were spent with the patient and discussing the discharge plan and followup instructions. CONDITION ON DISCHARGE: Stable. Reviewed by LADONNA MEJIAS NP 09/27/2017 1142 [id number] #: [id number] [facility]
== END 2017-09-26 15:35 | disposition home or self-care (01) ==
LOC: ED 19:52 → INTOOBSV 09-25 00:16 → SSU 09-25 00:16
PROVIDERS: ADMIT Hospitalist; ATTEND Hospitalist
DX: K56.609 Unspecified intestinal obstruction, unspecified as to partial versus complete obstruction (principal); I10 Essential (primary) hypertension; E78.5 Hyperlipidemia, unspecified; Z86.718 Personal history of other venous thrombosis and embolism; Z79.899 Other long term (current) drug therapy; Z87.891 Personal history of nicotine dependence; R10.9 Unspecified abdominal pain
CPT/HCPCS: 36415; 74020; 74177; 80048; 80053; 81003; 82565; 83605; 83690; 84484; 84520; 85025; 85610; 85730; 96372; 96374; 96375; 96376; 99284; G0378; J1644; J2270; J2405; J2543; Q9967